=== PATIENT | male | born 1955 | race American Indian/Alaskan Native ===

== ENCOUNTER 2018-08-15 08:33 | Outpatient (CLI) | payer OTHER ==
[2018-08-15 09:14] LABS: Mean Corpuscular HGB Conc 35 % (32-34); Mean Corpuscular Volume 88 fl (84-94); Platelet Count 260 K/mm3 (140-440); Red Blood Count 5.11 M/mm3 (3.65-5.03); Red Cell Distribution Width 14.3 % (13.2-15.2)
[2018-08-15 09:43] LABS: Alanine Aminotransferase 23 units/L (7-56); Albumin 4.5 g/dL (3.9-5); BUN/Creatinine Ratio 12; Blood Urea Nitrogen 12 mg/dL (9-20); Calcium 9.3 mg/dL (8.4-10.2); Hemolysis Index 3
[2018-08-15 10:05] LABS: Erythrocyte Sedimentation Rate 2 mm/Hr (0-20)
[2018-08-17 21:51] LABS: ANA Screen, IFA Negative (Negative)
[2018-08-17 21:58] LABS: Albumin 4.1 g/dL (3.8-4.8)
== END 2018-08-15 08:34 | disposition home or self-care (01) ==
LOC: LAB 08:33
PROVIDERS: ATTEND Specialist
DX: G65.1 Sequelae of other inflammatory polyneuropathy (principal)
CPT/HCPCS: 36415; 80053; 82306; 82607; 82747; 83036; 83921; 84165; 84443; 85027; 85652; 86038; 86225; 86334; 86592; 86618